=== PATIENT | male | born 2000 | race Two or more races ===

== ENCOUNTER → 2021-12-30 | Emergency (ER) | payer OTHER ==
[~2021-12-30] VITALS: Ht 170.2 cm; Wt 55.3 kg
[~2021-12-30] MED LIST: KETO10TA2 PO
== END | disposition home or self-care (01) ==
LOC: ER 19:49
DX: S13.4XXA Sprain of ligaments of cervical spine, initial encounter (principal); V48.4XXA Person boarding or alighting a car injured in noncollision transport accident, initial encounter; Y93.9 Activity, unspecified; Y92.410 Unspecified street and highway as the place of occurrence of the external cause